=== PATIENT | female | born 1990 | race Asian ===

== ENCOUNTER 2020-10-25 04:52 | Inpatient (IN) | payer BC ==
[~2020-10-25] VITALS: Ht 167.6 cm; Wt 109.0 kg
[2020-10-25] MEDS ORDERED: NEWBORN KIT ONE (05:16)
[2020-10-25] MEDS ORDERED: METOCLOPRAMIDE 5 MG/ML, 2ML ONE (05:26)
[2020-10-25] MEDS ORDERED: SODIUM CITRATE/CITRIC ACID 15 ML UDC ONE (05:27)
[2020-10-25] MEDS ORDERED: LACTATED RINGERS 1,000 ML IVBOLUS ONE (05:30)
[2020-10-25] MEDS ORDERED: METOCLOPRAMIDE 5 MG/ML, 2ML IV ONE (05:30)
[2020-10-25] MEDS: SODIUM CITRATE/CITRIC ACID 30 ML UDC PO ONE ×2 (05:30→06:36)
[2020-10-25 06:11] LABS: BASOPHILS % (AUTO) 0 % (0-1); EOSINOPHILS % (AUTO) 1 % (1-7); LYMPHOCYTES % (AUTO) 24 % (22-44); MEAN CORPUSCULAR HEMOGLOBIN 26.2 pg (27.0-34.8); MEAN CORPUSCULAR HGB CONC 32.1 g/dL (32.4-35.8); MEAN PLATELET VOLUME 9.6 fL (7.4-10.4); MONOCYTES % (AUTO) 5 % (2-9); NEUTROPHILS % (AUTO) 70 % (42-75); PLATELET COUNT 152 x10^3/uL (130-400); RED BLOOD COUNT 4.59 x10^6/uL (3.82-5.3); RED CELL DISTRIBUTION WIDTH 16.4 % (9.6-15.2)
[2020-10-25] MEDS ORDERED: FENTANYL PF 100 MCG/2ML ONE (06:17)
[2020-10-25] MEDS ORDERED: CEFAZOLIN 1,000 MG ONE (06:17)
[2020-10-25] MEDS ORDERED: EPINEPHRINE 1 MG/ML, 1ML ONE (06:17)
[2020-10-25] MEDS ORDERED: OXYTOCIN 10 UNITS/ML, 1ML ONE (06:17)
[2020-10-25] MEDS ORDERED: EPHEDRINE 50 MG/ML, 1ML ONE ×2 (06:17→07:11)
[2020-10-25] MEDS ORDERED: MISOPROSTOL 200 MCG TABLET ONE (06:21)
[2020-10-25] MEDS ORDERED: MISOPROSTOL 200 MCG TABLET PO PRN (06:30)
[2020-10-25] MEDS ORDERED: METHYLERGONOVINE 0.2 MG/ML IM PRN ×2 (06:30→08:00)
[2020-10-25] MEDS ORDERED: SIMETHICONE 80 MG CHEW TAB PO PRN ×2 (06:30→08:00)
[2020-10-25] MEDS ORDERED: MORPHINE SULFATE 4 MG/ML, 1ML IVPush PRN (06:30)
[2020-10-25] MEDS ORDERED: CARBOPROST TROMETHAMINE 250 MCG/ML, 1ML IM PRN ×2 (06:30→08:00)
[2020-10-25] MEDS ORDERED: ACETAMINOPHEN 325 MG TABLET PO PRN ×2 (06:30→08:00)
[2020-10-25] MEDS ORDERED: OXYTOCIN 30U/ 0.9% NaCL 500ML 500 ML IV SCH ×2 (06:30→08:00)
[2020-10-25] MEDS ORDERED: ONDANSETRON 2MG/ML, 2ML IV PRN ×2 (06:30→08:00)
[2020-10-25] MEDS ORDERED: morphine SULFATE 10 MG/ML, 1ML IVPush PRN (06:30)
[2020-10-25] MEDS ORDERED: LACTATED RINGERS 1,000 ML IV SCH ×2 (06:30)
[2020-10-25] MEDS ORDERED: MISOPROSTOL 200 MCG TABLET PR PRN (08:00)
[2020-10-25] MEDS ORDERED: DOCUSATE 100 MG CAPSULE PO PRN (08:00)
[2020-10-25] MEDS ORDERED: OXYTOCIN 10 UNITS/ML, 1ML IM PRN (08:00)
[2020-10-25] MEDS ORDERED: OXYcodone/APAP 5/325MG TABLET PO PRN ×2 (08:00)
[2020-10-25] MEDS ORDERED: IBUPROFEN 600 MG TABLET PO PRN (08:00)
[2020-10-25] MEDS ORDERED: LABETALOL 5MG/ML, 20ML ONE (08:06)
[2020-10-25] MEDS ORDERED: LABETALOL 5MG/ML, 20ML IVPush ONE (08:10)
[2020-10-25 08:28] LABS: ALANINE AMINOTRANSFERASE 25 U/L (12-78); ALBUMIN 2.4 g/dL (3.4-5.0); ANION GAP 9 mmol/L (5-15); CALCIUM 8.6 mg/dL (8.5-10.1); CHLORIDE 112 mmol/L (98-107); CREATININE 0.53 mg/dL (0.55-1.02)
[2020-10-25 08:31] LABS: ALKALINE PHOSPHATASE 176 U/L (45-117); BILIRUBIN,TOTAL 0.3 mg/dL (0.2-1.0); TOTAL PROTEIN 6.6 g/dL (6.4-8.2)
[2020-10-25 08:42] LABS: TOTAL PROTEIN,URINE RANDOM 13 mg/dL (0-12)
[2020-10-25 08:44] LABS: CREATININE,URINE RANDOM < 13.00 mg/dL
[2020-10-25] MEDS: PRENATAL VIT/IRON/FA 1 EACH TABLET PO SCH ×2 (09:00)
[2020-10-25 09:15] VITALS: BP 142/84
[2020-10-25] MEDS: IBUPROFEN 600 MG TABLET PO PRN ×3 (10:49→23:26)
[2020-10-25] MEDS: OXYcodone/APAP 5/325MG TABLET PO PRN ×3 (10:50→21:38)
[2020-10-25 12:00] VITALS: BP 141/82
[2020-10-25 15:13] LABS: BASOPHILS % (AUTO) 0 % (0-1); EOSINOPHILS % (AUTO) 0 % (1-7); LYMPHOCYTES % (AUTO) 18 % (22-44); MEAN CORPUSCULAR HEMOGLOBIN 26.6 pg (27.0-34.8); MEAN CORPUSCULAR HGB CONC 32.7 g/dL (32.4-35.8); MEAN PLATELET VOLUME 9.8 fL (7.4-10.4); MONOCYTES % (AUTO) 4 % (2-9); NEUTROPHILS % (AUTO) 78 % (42-75); PLATELET COUNT 134 x10^3/uL (130-400); RED BLOOD COUNT 4.16 x10^6/uL (3.82-5.3); RED CELL DISTRIBUTION WIDTH 16.1 % (9.6-15.2)
[2020-10-25 16:30] VITALS: BP 101/68
[2020-10-25 20:30] VITALS: BP 118/76
[2020-10-25] MEDS: DOCUSATE 100 MG CAPSULE PO PRN (21:37)
[2020-10-26] VITALS: BP 117/77
[2020-10-26] MEDS: OXYcodone/APAP 5/325MG TABLET PO PRN ×4 (02:54→19:51)
[2020-10-26 03:40] VITALS: BP 119/75
[2020-10-26] MEDS: IBUPROFEN 600 MG TABLET PO PRN ×3 (06:12→19:50)
[2020-10-26 08:10] VITALS: BP 115/78
[2020-10-26] MEDS: PRENATAL VIT/IRON/FA 1 EACH TABLET PO SCH ×2 (09:00→09:02)
[2020-10-26] MEDS: DOCUSATE 100 MG CAPSULE PO PRN ×2 (09:02→19:50)
[2020-10-26 20:25] VITALS: BP 116/81
[2020-10-27 02:40] VITALS: BP 111/71
[2020-10-27] MEDS: IBUPROFEN 600 MG TABLET PO PRN ×4 (02:42→20:44)
[2020-10-27] MEDS ORDERED: IBUP-1222 PO (04:06)
[2020-10-27] MEDS ORDERED: SENN-92 PO (04:07)
[2020-10-27] MEDS ORDERED: OXYC1TAB14 PO (04:07)
[2020-10-27] MEDS: OXYcodone/APAP 5/325MG TABLET PO PRN ×3 (05:11→15:52)
[2020-10-27 07:50] VITALS: BP 105/71
[2020-10-27] MEDS: PRENATAL VIT/IRON/FA 1 EACH TABLET PO SCH ×2 (09:00→10:13)
[2020-10-27] MEDS: DOCUSATE 100 MG CAPSULE PO PRN (10:13)
[2020-10-27 20:00] VITALS: BP 117/82
[2020-10-28] MEDS: OXYcodone/APAP 5/325MG TABLET PO PRN ×4 (01:55→15:25)
[2020-10-28] MEDS: IBUPROFEN 600 MG TABLET PO PRN ×2 (07:20→15:24)
[2020-10-28] MEDS: DOCUSATE 100 MG CAPSULE PO PRN (07:46)
[2020-10-28] MEDS: PRENATAL VIT/IRON/FA 1 EACH TABLET PO SCH (07:48)
[2020-10-28 08:00] VITALS: BP 102/71
[2020-10-28] MEDS ORDERED: IBUP-1222 PO (10:49)
[2020-10-28] MEDS ORDERED: OXYC1TAB14 PO ×2 (10:51→10:56)
[2020-10-28] MEDS ORDERED: DOCU100C33 PO (10:53)
== END 2020-10-28 15:35 | disposition home or self-care (01) | DRG 788 ==
LOC: LDOP 04:52 → LDIP 05:25 → 2NW 09:19
PROVIDERS: ADMIT Obstetrics & Gynecology; ATTEND Obstetrics & Gynecology
PROC: 10D00Z1 Extraction of Products of Conception, Low, Open Approach (ICD-10-PCS; principal; 2020-10-25)
DX: O77.0 Labor and delivery complicated by meconium in amniotic fluid (principal); O99.824 Streptococcus B carrier state complicating childbirth; O99.214 Obesity complicating childbirth; O69.81X0 Labor and delivery complicated by cord around neck, without compression, not applicable or unspecified; E66.01 Morbid (severe) obesity due to excess calories; D56.3 Thalassemia minor; O34.211 Maternal care for low transverse scar from previous cesarean delivery; O75.89 Other specified complications of labor and delivery; Z37.0 Single live birth; Z3A.40 40 weeks gestation of pregnancy; Z20.822 Contact with and (suspected) exposure to COVID-19
CPT/HCPCS: 36415; 80053; 82570; 84156; 85025; 86592; 86850; 86900; 87635; G0378; J0171; J0690; J3010; J2270; J2590; J2765; J7120